=== PATIENT | female | born 1950 ===

== ENCOUNTER 2023-05-04 20:35 | Emergency (ER) | payer MEDICARE, OTHER ==
[~2023-05-04] VITALS: Ht 154.9 cm; Wt 145.0 kg
[2023-05-04] MEDS ORDERED: MORPHINE SULFATE INJ 2 MG/ml SYRG IV ONE (21:00)
[2023-05-04] MEDS ORDERED: ONDANSETRON HCL 4 MG/2 ML VIAL IV ONE (21:00)
[2023-05-04] MEDS ORDERED: HYDROcodone-ACET 10/325MG TAB PO ONE (22:45)
[2023-05-04] MEDS ORDERED: ONDANSETRON ODT 4 MG TAB PO ONE (22:45)
[2023-05-05] MEDS ORDERED: KETOROLAC TROMETH 60MG/2ML VIAL IM ONE
[2023-05-05] MEDS ORDERED: ACE3T PO (01:38)
[2023-05-05 02:30] VITALS: BP 118/60; PULSE 68; RESP 18; TEMP 98; O2SAT 94
== END 2023-05-05 02:30 | disposition home or self-care (01) ==
LOC: ER 20:35
DX: S39.012A Strain of muscle, fascia and tendon of lower back, initial encounter (principal); M54.32 Sciatica, left side; M54.31 Sciatica, right side; Z98.890 Other specified postprocedural states; Z91.013 Allergy to seafood; X50.0XXA Overexertion from strenuous movement or load, initial encounter; Y93.89 Activity, other specified; Y92.89 Other specified places as the place of occurrence of the external cause; Y99.8 Other external cause status
CPT/HCPCS: 72100; 96372; 96374; 96375; 99284; J1885; J2270; J2405